=== PATIENT | female | born 1975 | race Caucasian/White ===

== ENCOUNTER 2023-03-31 08:24 | Day surgery (SDC) | payer OTHER, SELFPAY ==
[2023-03-31] VITALS (13 sets, daily range): BP systolic 96–120; BP diastolic 50–75; PULSE 63–77; RESP 16–24; TEMP 36–36.8; O2SAT 94–98; BMI 34.5
[2023-03-31] MEDS: Celecoxib 200 MG CAP PO (08:44)
[2023-03-31] MEDS: Gabapentin 300 MG CAP 600 MG PO (08:44)
[2023-03-31] MEDS: Acetaminophen 500 MG TAB 1000 MG PO (08:44)
--- NOTE | 2023-03-31 08:48 | ANES.PREOP_ITS ---
General Info Date of Service Date Performed: 03/31/23 Height: 5 ft 2 in Weight: 85.7 kg Body Mass Index (BMI): 34.5 Surgical Procedure: Operation Date: 03/31/23 09:25 Proposed Procedure Side Surgeon p Cholecystectomy Laparoscopic Delmi Patel MD Operation Date: 03/31/23 12:40 Proposed Procedure Side Surgeon p Cholecystectomy Laparoscopic Delmi Patel MD Meds Allergies and Home Medications Allergies Allergy/AdvReac Type Severity Reaction Status Date / Time Sulfa (Sulfonamide Allergy Unknown Verified 03/31/23 08:41 Antibiotics) Home Medication Medication Instructions Recorded albuterol sulfate 90 mcg/actuation 2 puff inhalation Q6H PRN 03/19/23 aerosol inhaler (Proventil HFA) escitalopram oxalate 10 mg tablet 10 mg PO DAILY 03/19/23 (Lexapro) pantoprazole 20 mg tablet,delayed 20 mg PO BID 03/19/23 release spironolactone 50 mg tablet 150 mg PO DAILY 03/22/23 Current Visit Medications: Current Medications Generic Name Dose Route Start Last Admin Trade Name Freq PRN Reason Stop Dose Admin Acetaminophen 1,000 mg 03/31/23 06:00 03/31/23 08:44 Acetaminophen 500 Mg Tab PO 04/29/23 23:59 1,000 mg PREOP NADIA Administration Celecoxib 200 mg 03/31/23 06:00 03/31/23 08:44 Celecoxib 200 Mg Cap PO 04/29/23 23:59 200 mg PREOP NADIA Administration Gabapentin 600 mg 03/31/23 06:00 03/31/23 08:44 Gabapentin 300 Mg Cap PO 04/29/23 23:59 600 mg PREOP NADIA Administration Ringer's Solution 1,000 mls @ 80 mls/hr 03/31/23 06:00 IV 04/29/23 23:59 INFUSION NADIA Cefazolin Sodium/Dextrose 2 gm in 50 mls @ 100 mls/hr 03/31/23 06:00 Ancef Duplex IVPB 04/29/23 23:59 PREOP NADIA IV Miscellaneous Supplies 1 each 03/31/23 06:00 Iv Access IV 04/29/23 23:59 DIRECTED NADIA Sodium Chloride 0 ml 03/31/23 06:00 Normal Saline Flush 10 Ml Syr IV 04/29/23 23:59 PRN PRN Sodium Chloride 0 ml 03/31/23 06:00 Normal Saline 10 Ml Vial IJ 04/29/23 23:59 DIRECTED PRN Sterile Water 0 ml 03/31/23 06:00 Water,Injection,Sterile 10 Ml Vial IJ 04/29/23 23:59 DIRECTED PRN PFSH Active Problems Active Problems: Problem Status Onset Code Biliary colic K80.50 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 Gall bladder polyp K82.4 Postprandial epigastric pain R10.13 Medical History Medical History Anxiety Asthma Depression Papilloma of palate Shoulder pain, right Surgical History Surgical History S/P rotator cuff surgery Tobacco Smoking/Tobacco Use Status: Never Alcohol Alcohol Intake: current Alcohol intake frequency: holidays/special occasions only Substance Use Substance use: Never Substance use type: does not use Vital Signs and Lab Results Vital Signs Most Recent Vital Signs in EMR: Most Recent Vital Signs Temp Pulse Resp BP Pulse Ox 36.8 C 69 18 107/71 98 03/31/23 08:35 03/31/23 08:35 03/31/23 08:35 03/31/23 08:35 03/31/23 08:35 Point of Care Results Point of Care Results: POC- Test(urine) Negative 03/31/23 08:42 Lab Results Blood Type / Crossmatch: No Data to Display Complete Blood Count: No Data to Display Complete Metabolic Panel: No Data to Display Liver Function Panel: No Data to Display Coagulation Panel: No Data to Display Cardiac Panel: No Data to Display Arterial Blood Gas: No Data to Display Venous Blood Gas: No Data to Display Pancreas Panel: No Data to Display Thyroid Panel: No Data to Display Infectious Disease: No Data to Display Blood Cultures: No Data to Display Toxicology Panel: No Data to Display Panel: No Data to Display Anesthesia Assessment and Plan Anesthesia History Personal History: No History of Anesthesia Complications Family History: No Family History of Anesthesia Complications Exercise Tolerance Exercise Tolerance: Metabolic Equivalents>4 Pertinent Negatives Pertinent Negatives: No Symptoms of GERD, No Major Cardiovascular Symptoms or Co mplaints and No History of CVA/TIA Cardiac & Pulmonary Exam Cardiac Exam: Normal S1/S2 Heart Sounds Pulmonary Exam: Clear Bilateral Breath Sounds Implantable Cardiac Device Does patient have a Pacemaker or an ICD?: No Airway Exam Known Difficult Airway: No Mallampati Class: 2 Mouth Opening: Normal (> 3cm) Thyromental Distance: Greater than 3 cm Neck Range of Motion: Full ROM Neck Circumference: Normal Teeth Condition: Normal Dentition ASA Classification ASA Score: ASA 2 Emergency Case?: No NPO Status NPO Status: NPO Clears >2 hours, Solids >8 hours Status Status: Negative HCG Anesthesia Plan Resuscitation Status: Full Code Anesthesia Technique: General Anesthesia Airway Planned: Endotracheal Tube Monitors Used: Standard Monitors
--- NOTE | 2023-03-31 08:50 | PGE_ITS ---
Date of Service Date of service: 03/31/23 Time of Service: 09:08 Assessment and Plan Assessment and plan (1) Adenomyomatosis of gallbladder: Status: Acute Assessment and plan: Carrie is a pleasant 47-year-old female who has been having postprandial pain which has been intermittent for the last year.? The episodes have become stronger.? The last 1 she ended up in the emergency department with.? She did have some PVCs on EKG when she was seen in the ER.? But she denies any palpitations or chest pain.? She has been treated with multiple antacids without improvement in her symptoms.? Ultrasound showed polyps 1 of which was in the neck as well as adenomyomatosis of the gallbladder.? Sometimes polyps can cause pain and this is an indication to have the gallbladder removed.? I described the pathophysiology of her disease as well as the procedure itself.? We reviewed all the risks, benefits and complications of the procedure in detail.? She seemed to have a good understanding of the complication potential at the end of our conversation.? Risks, benefits, complications were reviewed with the patient in the office.? Complications include but are not limited to bleeding, infection, injury to stomach, small bowel and large bowel, injury to the pancreas, injury to the common bile duct necessitating drainage and referral to tertiary center for repair, bile leak, adverse reactions to the medications, complications of intubation including a sore throat or injury to the uvula, [place], stroke and even .? Questions were entertained and answered to her satisfaction and she wished to proceed.? No guarantees were given or implied. I reviewed the risks, benefits and complications of the procedure again in same- day surgery the day of surgery. We reviewed the procedure and I answered any of her questions. She had a good understanding of the procedure and the possible complications and wished to proceed with surgery today. Proceed with laparoscopic cholecystectomy possible cholangiogram and possible open procedure. (2) Biliary colic: Status: Acute Subjective Subjective Interval history since last seen: From Chart: Carrie is a pleasant 47-year-old female who has been having postprandial pain which has been intermittent for the last year.? The episodes have become stronger.? The last 1 she ended up in the emergency department with.? She did have some PVCs on EKG when she was seen in the ER.? But she denies any palpitations or chest pain.? She has been treated with multiple antacids without improvement in her symptoms.? Ultrasound showed polyps 1 of which was in the neck as well as adenomyomatosis of the gallbladder.? Sometimes polyps can cause pain and this is an indication to have the gallbladder removed.? I described the pathophysiology of her disease as well as the procedure itself.? We reviewed all the risks, benefits and complications of the procedure in detail.? She seemed to have a good understanding of the complication potential at the end of our conversation.? Risks, benefits, c omplications were reviewed with the patient in the office.? Complications include but are not limited to bleeding, infection, injury to stomach, small bowel and large bowel, injury to the pancreas, injury to the common bile duct necessitating drainage and referral to tertiary center for repair, bile leak, adverse reactions to the medications, complications of intubation including a sore throat or injury to the uvula, MD, stroke and even .? Questions were entertained and answered to her satisfaction and she wished to proceed.? No guarantees were given or implied. Radha was seen in same-day surgery prior to her surgery today. She is doing well. She has not had any new symptoms or issues. She has not been in the emergency department since I saw her in the office. Exam Const General: cooperative, comfortable and no acute distress Nutritional Appearance: average body habitus Orientation: alert and oriented x3 HENMT Head: normocephalic and atraumatic Resp Effort & Inspection: normal respiratory effort Auscultation: clear to auscultation bilaterally Cardio Rate: regular rate Rhythm: regular rhythm GI Inspection: normal to inspection Palpation: soft, no hepatosplenomegaly and nontender Objective Last Vital Signs Temp 98.2 F 03/31/23 08:35 Pulse 69 03/31/23 08:35 Resp 18 03/31/23 08:35 BP 107/71 03/31/23 08:35 Pulse Ox 98 03/31/23 08:35 Time Spent with Patient Time Spent with Patient: <25 minutes Time was spent: counseling the patient
[2023-03-31] MEDS: Lactated Ringers 1,000 ML 80 ML IV (08:52)
--- NOTE | 2023-03-31 08:53 | W.PM.DSUDISC ---
Date of service: 03/31/23 Time of Service: 13:04 Discharge Plan Disposition Patient Disposition: Home Condition: Stable Discharge Details Reason For Visit: Biliary cholic Attending Provider: Delmi Patel Primary Care Provider: Latonya Herring Home Meds and New Rx's Prescriptions: New tramadol 50 mg tablet 50 mg PO Q6H PRNQty: 14 0RF Continued pantoprazole 20 mg Tablet,Delayed Release (Dr/Ec) 20 mg PO BID Rx Instructions: 1 tablet by mouth 2 times daily before meals albuterol sulfate [Proventil HFA] 90 mcg/actuation Hfa Aerosol Inhaler 2 puff INHALATION Q6H PRN escitalopram oxalate [Lexapro] 10 mg Tablet 10 mg PO DAILY Rx Instructions: 1.5 tablets by mouth daily spironolactone 50 mg tablet 150 mg PO DAILY Rx Instructions: take three tablets by mouth every day Discharge Instructions Instructions: Laparoscopic Cholecystectomy (DC) Additional Instructions: Activity at Home after surgery: 1. Make sure you walk outside at least 4 times per day 2. You should be able to climb a flight of stairs 3. No driving while in pain or taking pain medications 4. No strenuous activity or heavy lifting for 2 weeks (laparoscopic surgery) Diet, Nutrition, & wound healin. Avoid alcohol until after you are recovered from your surgery 2. Make sure to eat plenty of lean protein (meat, fish, eggs, cottage cheese, beans) 3. Eat a variety of fruits and vegetables. Eat plenty of high fiber foods to avoid constipation. 4. Drink plenty of liquids to stay hydrated and avoid constipation Pain Medications: 1. Tylenol 650mg every 6 hours as needed and Ibuprofen 600 mg every 6 hours as needed. You may alternate between the 2 medications every 3 hours 2. If a narcotic has been prescribed take as directed only for breakthrough pain For Constipation: 1. Take Milk of Magnesia or MiraLax as needed for constipation Other: 1. You may shower daily. Do not scrub the incisions 2. Do not soak the incisions for 1 week 3. You may alternate ice and heat as needed for pain and swelling Wound Care: 1. Keep the incisions clean and dry Please call our office if you develop: 1. Fevers >101.5 2. Nausea or Vomiting 3. Worsening pain 4. Redness and thick discharge from the wounds If after hours please call the Hospital at and ask to speak to the on-call surgeon Dr. Mustafa Cell phone: [phone] ( if I do not answer I may not have service, please call the hospital) Referrals: Delmi Patel MD [ [facility] STAFF PHYSICIAN] - 04/13/23 9:30 am Activity:: see above Remove Dressings/Wound Care:: Do Not Remove Shower/Bathe:: 24 hours Diet:: low fat Discharge Orders Discharge Orders: Discharge Order (Routine); Ordered 03/31/23 Ordered By: Delmi Patel DS: Diagnosis Discharge Diagnosis (1) Adenomyomatosis of gallbladder: Status: Acute Asessment and Plan: The patient is doing well post-op from their Laparodscopic Cholecystectomy surgery.? They are having no nausea or vomiting. They are tolerating liquids and a snack. The pt is not having any chest pain or SOB.? Their pain is adequately controlled. They have been able to urinate.? She is still sleep but wakes up to her name. She wants to go home and sleep. ?HEENT:? no eye pain/drainage/redness/swelling. Mild sore throat ?Cardio- NSR, no chest pain, BP stable- see VS record ?Pulm: no sob or productive cough. No hemoptysis ?Incision- dressing is c/d/i w/ no excessive bleeding or drainage ?I discussed with the patient the findings at the time of surgery and the patient?s progress. ?We reviewed expectations at home; what the patient could expect for recovery time, and in the post-operative period.? We discussed the importance of walking to avoid blood clots and pneumonia.? We discussed and reviewed the patient's post-operative wound care and dressing needs.?? We reviewed their step-craig pain management plan, Rx called to the pharmacy of their choice.? We reviewed activity and limitations-see discharge instructions. We reviewed warning signs, and when to seek medical attention- see d/c instructions.?? Patient was given a postoperative follow-up appointment. Patient verbalized understanding of their postoperative instructions, how do to take care of themselves and their incision, and the pain management plan. Please see discharge instructions.? (2) Biliary colic: Status: Acute
--- NOTE | 2023-03-31 09:08 | ROE_ITS ---
Date of service: 03/31/23 Time of Service: 10:18 Operative Note Operative Note DATE OF PROCEDURE: 03/31/23 PRE-OP DIAGNOSIS: Biliary Cholic Adenomyomatosis Gallbladder polyp POST-OP DIAGNOSIS: same PROCEDURE: Laparoscopic Cholecystectomy SURGEON: Delmi Patel SENIOR UI DESIGNER: Josr Lew ANESTHESIA TYPE: Local By Surgeon and General LMA/ETT Refer to Anesthesia Record ESTIMATED BLOOD LOSS: 25 PATHOLOGY: other (Gallbladder and contents) COMPLICATIONS: None Patient was transported to: PACU Patient's condition: stable Indications: Carrie is a pleasant 47-year-old female who has been having postprandial pain which has been intermittent for the last year.? The episodes have become stronger.? The last 1 she ended up in the emergency department with.? She did have some PVCs on EKG when she was seen in the ER.? But she denies any palpitations or chest pain.? She has been treated with multiple antacids without improvement in her symptoms.? Ultrasound showed polyps 1 of which was in the neck as well as adenomyomatosis of the gallbladder.? Sometimes polyps can cause pain and this is an indication to have the gallbladder removed.? I described the pathophysiology of her disease as well as the procedure itself.? We reviewed all the risks, benefits and complications of the procedure in detail.? She seemed to have a good understanding of the complication potential at the end of our conversation.? Risks, benefits, complications were reviewed with the patient in the office.? Complications include but are not limited to bleeding, infection, injury to stomach, small bowel and large bowel, injury to the pancreas, injury to the common bile duct necessitating drainage and referral to tertiary center for repair, bile leak, adverse reactions to the medications, complications of intubation including a sore throat or injury to the uvula, [place], stroke and even .? Questions were entertained and answered to her satisfaction and she wished to proceed.? No guarantees were given or implied. Findings: Normal appearing Gallbladder Procedure Description: After informed consent was obtained the patient was brought to the operating room, placed in a supine position and monitors were applied. SCDs were applied to her lower extremities and she was placed under general anesthesia and intubated without difficulty. Her abdomen was then prepped and draped in a sterile fashion using ChloraPrep. At this point a timeout was done and the patient's name, date of , procedure type, allergies to medications, metal in her body, antibiotic and DVT prophylaxis, and fire risk was assessed. Next 0.25% Bupivocaine was injected just above the umbilicus into the dermis and subcutaneous tissue. A 5 mm incision was made with an 11 blade. The subcutaneous tissue was dissected with a hemostat down to the fascia. The skin next to the incision was grasped with penetrating towel clamps and while pulling up on the skin a 5 mm port was placed under direct visualization. The abdomen was insuflated and then 3 more ports were placed. A 12 mm port was placed in the subxiphoid area and two 5 mm ports were placed in the right upper quadrant. The liver was inspected and looked normal. The patient's bed was then turned to the left and her head was brought up. The gallbladder was grasped at the body and pushed towards the right shoulder, this allowed me to visualize the neck of the gallbladder. The neck was grasped and pulled towards the right flank and down allowing me to visualize the lymph node. Using a [place] dissector with cautery the lymph node was gently dissected away from the tissues and the fatty tissue was also dissected away. The cystic duct was identified it was normal in size. The duct was dissected 360 degrees using the [place] dissector in order for me to visualize its entrance into the gallbladder. Liver was noted behind it. There were no other structures right behind. Critical view was achieved. 3 clips were placed one proximal and 2 distal and the cystic duct was cut. The cy stic artery was then identified and dissected 360 degrees. It was located just medial to the cystic duct. It was visualized going into the gallbladder. Once dissected 3 more clips were placed one proximal and 2 distal and the artery was cut. There was a small branch coming off the Cystic duct and a clip was applied. Using the hook dissector the gallbladder was then dissected away from the liver bed and placed into an Endo Catch bag and pulled through the 12 mm port site. The 12 mm port was placed back into the abdomen under direct visualization. The liver bed was inspected no bleeding was noted. The abdomen was then irrigated with a liter of normal saline until the effluent was clear. Once all the fluid was suctioned out, 10 cc of the local was then injected above the liver. The 12 mm and the 2 right upper quadrant ports were removed under direct visualization and no bleeding was noted from the fascia. The abdomen was deflated completely and lastly the umbilical port was removed. The skin was cleaned and the incisions were closed with 4-0 Vicryl. The skin was dried and dermabond was applied over the closed incisions. Needle, instrument and sponge counts were correct at the end of the case. At this point the patient was woken up, extubated and taken back to recovery in stable condition. There were no immediate complications.
[2023-03-31] MEDS: ceFAZolin 2 GM/50 ML BAG IVPB (09:34)
[2023-03-31] MEDS: Bupivacaine 0.25% Pres-Free 30 ML VIAL (09:47)
--- NOTE | 2023-03-31 10:01 | GB_PTH ---
PATIENT: Shanique Meraz LOC: [facility] U#:[id number] AGE/SX: 47/F ROOM: RE03/31/[address]: Delmi Patel MD : 1975 BED: DIS: 03/31/2023 SPEC #: [id number] RECD: 03/31/23 12:56 STATUS: CHAS REQ #: [id number] MARY: 03/31/23 10:[address]: Delmi Patel DEPT: Surgical Specimen RECD BY: Neeta Darling ENTERED: 03/31/23 12:57 SP TYPE: GB OTHR DR: Latonya Herring Tissues: 1 - GALLBLADDER Procedures: GROSS AND MICRO LEVEL 3 Comments: [id number]
[2023-03-31] MEDS: Ondansetron 4 MG/2 ML VIAL IVP (11:24)
[2023-03-31] MEDS: Droperidol 5 MG/2 ML VIAL 0.625 MG IVP (11:35)
[2023-03-31] MEDS: fentaNYL 100 MCG/2 ML VIAL IVP (11:45)
--- NOTE | 2023-03-31 13:00 | W.ANESPOSTOP ---
Postoperative Evaluation Date, Time and Location Date Performed: 03/31/23 Time Performed: 13:09 Patient Location: Day Surgery Unit Vital Signs Most Recent Imported Vital Signs: Most Recent Vital Signs Temp Pulse Resp BP Pulse Ox 36.4 C L 66 17 109/69 96 03/31/23 12:48 03/31/23 12:48 03/31/23 12:48 03/31/23 12:48 03/31/23 12:48 Pain Score Most Recent Pain Score: Most Recent Pain Score Pain Level 2 03/31/23 12:48 Assessment Mental Status: Arousable with meaningful communication Airway and Respiratory Function: Patent airway with normal (patient baseline) respiratory exam Cardiovascular Function: Hemodynamically Stable Hydration Status: Adequately Hydrated Nausea & Vomiting: No Nausea or Vomiting Pain: Pain is tolerable per patient Peripheral Nerve Block: Patient did not receive a nerve block
== END 2023-03-31 13:56 | disposition home or self-care (01) ==
PROVIDERS: PCP Nurse Practitioner Family; Visit Provider Surgery
PROC: 0FT44ZZ Resection of Gallbladder, Percutaneous Endoscopic Approach (ICD-10-PCS; CPT 47562; principal; 2023-03-31 09:15)
DX: J45.909 Unspecified asthma, uncomplicated; F32.A Depression, unspecified; K81.1 Chronic cholecystitis
CPT/HCPCS: 47562; 81025; 88304; J0690; J1100; J1790; J2250; J2405; J3010

== ENCOUNTER 2023-04-14 11:09 | Day surgery (SDC) | payer OTHER, SELFPAY ==
--- NOTE | 2023-04-14 07:16 | PGE_ITS ---
Date of Service Date of service: 04/14/23 Time of Service: 13:52 Assessment and Plan Assessment and plan (1) Epigastric pain: Status: Acute Assessment and plan: From her cholecystectomy standpoint she is doing well.? Her incisions have healed.? She has had 1 episode of epigastric pain that went to her chest with some shortness of breath which most likely was her anxiety.? EKG done by the applications programmer analyst was negative.? Patient has not had another episode.? This episode was after eating greasy spicy sausage the night before.? I tried to reassure Shanique that most likely this is just her gastritis acting up because of what she ate.? She has quite an anxiety issue as well which we discussed.? Certainly I could try adding Carafate to see if that will help.? Shanique is wondering about an upper endoscopy to make sure she does not have an ulcer.? I think giving her anxiety and her symptoms this is not unreasonable. I discussed the upper endoscopy with her.? We reviewed the procedure itself, the pathophysiology of gastritis, reflux.? We reviewed the risks, benefits and complications.? After our conversation Shanique had a good understanding of the procedure and the possible complications and wished to proceed.? Risks, benefits and complications have been reviewed. Complications include but are not limited to bleeding, pain, perforation, sore throat, aspiration, and adverse reaction to the medications.? Questions were entertained and answered to their satisfaction and they wished to proceed. No guarantees were given or implied. Subjective Subjective Interval history since last seen: Shanique is doing well. I saw her in same-day surgery. She does not have any questions about the procedure and the possible complications. She has not had any emesis or nausea today she has not had any chest pain or shortness of breath. We did review the procedure and its complications. Exam Const General: comfortable and no acute distress Nutritional Appearance: average body habitus Orientation: alert and oriented x3 HENMT Head: normocephalic and atraumatic Resp Effort & Inspection: normal respiratory effort Time Spent with Patient Time Spent with Patient: <25 minutes Time was spent: counseling the patient
--- NOTE | 2023-04-14 07:16 | ENDO_ITS ---
Date of service: 04/14/23 Time of Service: 14:54 Endoscopy Report DATE OF PROCEDURE: 04/14/23 PRE-OP DIAGNOSIS: epigastric pain POST-OP DIAGNOSIS: other (bile reflux gastritis) PROCEDURE: EGD with biopsies SURGEON: Delmi Patel ANESTHESIA TYPE: General:No Airway ESTIMATED BLOOD LOSS: 3 PATHOLOGY: other (Bx of stomach and GE junction) COMPLICATIONS: None DISPOSITION: same day INDICATIONS: From her cholecystectomy standpoint she is doing well.? Her incisions have healed.? She has had 1 episode of epigastric pain that went to her chest with some shortness of breath which most likely was her anxiety.? EKG done by the [employer] was negative.? Patient has not had another episode.? This episode was after eating greasy spicy sausage the night before.? I tried to reassure Shanique that most likely this is just her gastritis acting up because of what she ate.? She has quite an anxiety issue as well which we discussed.? Certainly I could try adding Carafate to see if that will help.? Shanique is wondering about an upper endoscopy to make sure she does not have an ulcer.? I think giving her anxiety and her symptoms this is not unreasonable. I discussed the upper endoscopy with her.? We reviewed the procedure itself, the pathophysiology of gastritis, reflux.? We reviewed the risks, benefits and complications.? After our conversation Shanique had a good understanding of the procedure and the possible complications and wished to proceed.? Risks, benefits and complications have been reviewed. Complications include but are not limited to bleeding, pain, perforation, sore throat, aspiration, and adverse reaction to the medications.? Questions were entertained and answered to their satisfaction and they wished to proceed. No guarantees were given or implied. FINDINGS: bile reflux with mild gastritis PROCEDURE DESCRIPTION: After informed consent was obtained the patient was take to the procedure room and placed in a supine position. Monitors were applied and a time out was done. The patients name, date of , procedure type, allergies to medications and metal in their body was reviewed. A bite block was placed and the patient was sedated. Once sedated and comfortable the gastroscope was advanced through the oropharynx which was grossly normal into the esophagus. The proximal and mid- esophagus were normal. In the distal esophagus there was no inflammation noted. The scope was advanced into the stomach and through the pylorus into the 3rd portion of the duodenum. The duodenum was noted to be normal. The scope was retracted back into the stomach and biopsies were done to rule out H. pylori. There were no ulcers. The scope was retroflexed. The cardia and fundus were noted to be normal. There was no hiatal hernia noted. The scope was retracted back into the esophagus and biopsies were done of the GE junction to rule out Ortega's. The Z line was regular. The GE junction was at 38 cm. The scope was removed and the patient was woken up and taken back to [facility] in stable condition. Follow up: 2 weeks
--- NOTE | 2023-04-14 07:17 | W.PM.DSUDISC ---
Date of service: 04/14/23 Time of Service: 14:36 Discharge Plan Disposition Patient Disposition: Home Condition: Stable Discharge Details Reason For Visit: EGD Attending Provider: Delmi Patel Primary Care Provider: Latonya Herring Home Meds and New Rx's Prescriptions: New sucralfate [Carafate] 1 gram tablet 1 g PO QACHS 30 Days Qty: 120 0RF Rx Instructions: Take before meals and at bedtime Continued propranolol 10 mg tablet 10 mg PO ONCE PRN albuterol sulfate [Proventil HFA] 90 mcg/actuation Hfa Aerosol Inhaler 2 puff INHALATION Q6H PRN escitalopram oxalate [Lexapro] 10 mg Tablet 10 mg PO DAILY Rx Instructions: 1.5 tablets by mouth daily spironolactone 50 mg tablet 150 mg PO DAILY Patient Comments: 04/14 Pt reports not having had to use Rx Instructions: take three tablets by mouth every day Discontinued pantoprazole 20 mg Tablet,Delayed Release (Dr/Ec) 20 mg PO BID Rx Instructions: 1 tablet by mouth 2 times daily before meals Discharge Instructions Additional Instructions: Findings: mild inflammation in the stomach and esophagus secondary to bile refluxing from the small intestine into the stomach Follow up: 2 weeks Medications: Carafate 1 gm take before meals and at bed. If its too hard to swallow you can dissolve the tablet in 2-3 ounces of water and drink the slurry Please call if you develop: fevers >101.5 Nausea or Vomiting Abdominal pain that is not transient Rectal bleeding that is more then a tbsp A hard abdomen and inability to pass gas DAY SURGERY UNIT POST ENDOSCOPY INSTRUCTIONS Instructions for everyone who is given Anesthesia: For your safety, please do the following for the next 24 Hours: a. Do not drive or operate dangerous equipment b. Do not drink alcohol beverages or use any recreational drugs for the first 24 hours or while taking pain medications. The medications in your body may have a reaction that can be dangerous. c. Do not make any important decisions or sign any important papers 1. Generally there are no restrictions on your activity after a day or so has gone by, but you may feel a bit fatigued for a few days. 2. After you arrive home you may have a light meal and return to a normal diet as you can tolerate it without feeling sick to your stomach. 3. After surgery, you may feel pain or discomfort. This should be only transient, but if it persists please contact your doctor. 4. If there are any questions regarding the findings of your procedure, please feel free to contact your doctor. 6. If you are unable to contact your doctor with a problem, contact the hospital at [phone]. 7. Continue all your regular medications unless directed otherwise. I understand the above instructions and have no questions. Signature of Patient or Responsible Adult Escort Date/Time Name of Responsible Adult Escort Signature of Nurse Date/Time Activity:: Activity as Tolerated Diet:: As Tolerated Discharge Orders Discharge Orders: Discharge Order (Routine); Ordered 04/14/23 Ordered By: Delmi Patel DS: Diagnosis Discharge Diagnosis (1) Epigastric pain: Status: Acute Asessment and Plan: Patient is seen and examined after their endoscopy. Patient has minimal sore throat. They have been able to tolerate liquids. They do not have any Nausea or Vomiting. They are not having any chest pain or shortness of breath. They have been able to pass gas and are not having any abdominal pain or distention. they have not vomited any blood. The vital signs have been stable-see nursing notes. We discussed findings on their endoscopy We reviewed the importance of lifestyle modifications- see diet recommendations We reviewed any new medications that the patient may be prescribed- see medicine reconciliation. Patient will either be sent a letter with the biopsy results or follow up in the office- see discharge instructions Patient was given explicit instructions for emergency follow up post endoscopy- see discharge instructions Patient verbalized understanding and was discharged in stable and satisfactory condition. See nursing notes.
--- NOTE | 2023-04-14 11:38 | W.ANESPRE ---
General Info Date of Service Date Performed: 04/14/23 Height: 5 ft 2 in Weight: 85.7 kg Body Mass Index (BMI): 34.5 Surgical Procedure: Operation Date: 04/14/23 14:35 Proposed Procedure Side Surgeon p Gastroscopy Delmi Patel MD Meds Allergies and Home Medications Allergies Allergy/AdvReac Type Severity Reaction Status Date / Time Sulfa (Sulfonamide Allergy Unknown Verified 04/14/23 12:15 Antibiotics) Home Medication Medication Instructions Recorded albuterol sulfate 90 mcg/actuation 2 puff inhalation Q6H PRN 03/19/23 aerosol inhaler (Proventil HFA) escitalopram oxalate 10 mg tablet 10 mg PO DAILY 03/19/23 (Lexapro) pantoprazole 20 mg tablet,delayed 20 mg PO BID 03/19/23 release spironolactone 50 mg tablet 150 mg PO DAILY 03/22/23 propranolol 10 mg tablet 10 mg PO ONCE PRN 04/13/23 Current Visit Medications: Current Medications Generic Name Dose Route Start Last Admin Trade Name Freq PRN Reason Stop Dose Admin Ringer's Solution 1,000 mls @ 80 mls/hr 04/14/23 06:00 IV 04/14/23 23:59 [facility] IV Miscellaneous Supplies 1 each 04/14/23 06:00 Iv Access IV 04/14/23 23:59 DIRECTED NADIA Ondansetron HCl 4 mg 04/14/23 07:17 Ondansetron 4 Mg/2 Ml Vial IVP 05/14/23 07:16 Q4H PRN PRN Nausea / Vomiting Sodium Chloride 0 ml 04/14/23 06:00 Normal Saline Flush 10 Ml Syr IV 04/14/23 23:59 PRN PRN Sodium Chloride 0 ml 04/14/23 06:00 Normal Saline 10 Ml Vial IJ 04/14/23 23:59 DIRECTED PRN Sterile Water 0 ml 04/14/23 06:00 Water,Injection,Sterile 10 Ml Vial IJ 04/14/23 23:59 DIRECTED PRN PFSH Active Problems Active Problems: Problem Status Onset Code Epigastric pain R10.13 Biliary colic K80.50 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 Gall bladder polyp K82.4 Postprandial epigastric pain R10.13 Medical History Medical History Anxiety Asthma Depression Papilloma of palate Shoulder pain, right Surgical History Surgical History History of bunionectomy b/l History of cholecystectomy (~03/2023) History of tonsillectomy and adenoidectomy Hx of section Hx of tubal ligation S/P rotator cuff surgery Tobacco Smoking/Tobacco Use Status: Never Alcohol Alcohol Intake: current Alcohol intake frequency: holidays/special occasions only Substance Use Substance use: Never Substance use type: does not use Vital Signs and Lab Results Vital Signs Most Recent Vital Signs in EMR: Temp Pulse Resp BP Pulse Ox 36.5 C 67 18 113/59 L 98 04/14/23 12:17 04/14/23 12:17 04/14/23 12:17 04/14/23 12:17 04/14/23 12:17 Lab Results Blood Type / Crossmatch: No Data to Display Complete Blood Count: No Data to Display Complete Metabolic Panel: No Data to Display Liver Function Panel: No Data to Display Coagulation Panel: No Data to Display Cardiac Panel: No Data to Display Arterial Blood Gas: No Data to Display Venous Blood Gas: No Data to Display Pancreas Panel: No Data to Display Thyroid Panel: No Data to Display Infectious Disease: No Data to Display Blood Cultures: No Data to Display Toxicology Panel: No Data to Display Panel: No Data to Display Anesthesia Assessment and Plan Anesthesia History Personal History: No History of Anesthesia Complications Family History: No Family History of Anesthesia Complications Exercise Tolerance Exercise Tolerance: Metabolic Equivalents>4 Cardiac & Pulmonary Exam Cardiac Exam: Normal S1/S2 Heart Sounds Pulmonary Exam: Clear Bilateral Breath Sounds Implantable Cardiac Device Does patient have a Pacemaker or an ICD?: No Airway Exam Known Difficult Airway: No Mallampati Class: 2 Mouth Opening: Normal (> 3cm) Thyromental Distance: Greater than 3 cm Neck Range of Motion: Full ROM Neck Circumference: Normal Teeth Condition: Normal Dentition ASA Classification ASA Score: ASA 2 Emergency Case?: No NPO Status NPO Status: NPO Clears >2 hours, Solids >8 hours Status Status: Negative HCG Anesthesia Plan Resuscitation Status: Full Code Anesthesia Technique: MAC Anesthesia Airway Planned: Natural Airway Monitors Used: Standard Monitors Preoperative Comments:: 47 yo female for EGD. no health history change Sig PMHx: asthma (rare albut use), depression, never smoker, occ EtOH. Previous Anes: - [employer] 2 grade 2b
[2023-04-14] MEDS: Lactated Ringers 1,000 ML 80 ML IV (12:10)
[2023-04-14 12:17] VITALS: BP 113/59; PULSE 67; RESP 18; TEMP 36.5; O2SAT 98
[2023-04-14 12:58] VITALS: BMI 34.5
--- NOTE | 2023-04-14 14:08 | STOM_PTH ---
PATIENT: Shanique Meraz LOC: [facility] U#:[id number] AGE/SX: 47/F ROOM: RE04/14/[address]: Delmi Patel MD : 1975 BED: DIS: 04/14/2023 SPEC #: [id number] RECD: 04/14/23 18:23 STATUS: CHAS REQ #: [id number] MARY: 04/14/23 14:[address]: Delmi Patel DEPT: Surgical Specimen RECD BY: Neeta Darling ENTERED: 04/14/23 18:24 SP TYPE: STOMACH OTHR DR: Latonya Herring Tissues: 1 - STOMACH BIOPSY 2 - ESOPHAGUS BIOPSY Procedures: GROSS AND MICRO LEVEL 4 Comments: [id number]
[2023-04-14 14:16] VITALS: BP 88/54; PULSE 81; RESP 16; TEMP 36.3; O2SAT 98
--- NOTE | 2023-04-14 14:24 | W.ANESPOSTOP ---
Postoperative Evaluation Date, Time and Location Date Performed: 04/14/23 Time Performed: 14:24 Patient Location: Day Surgery Unit Vital Signs Most Recent Imported Vital Signs: Most Recent Vital Signs Temp Pulse Resp BP Pulse Ox 36.3 C L 81 16 88/54 L 98 04/14/23 14:16 04/14/23 14:16 04/14/23 14:16 04/14/23 14:16 04/14/23 14:16 Pain Score Most Recent Pain Score: Most Recent Pain Score Pain Level 0 04/14/23 14:16 Assessment Mental Status: Awake (Alert & Oriented to Patient Baseline) Airway and Respiratory Function: Patent airway with normal (patient baseline) respiratory exam Cardiovascular Function: Hemodynamically Stable Hydration Status: Adequately Hydrated Nausea & Vomiting: No Nausea or Vomiting Pain: Pt. Denies Any Pain Peripheral Nerve Block: Patient did not receive a nerve block
[2023-04-14 14:56] VITALS: BP 97/51; PULSE 81; RESP 16; TEMP 36.3; O2SAT 99
[2023-04-14 15:20] VITALS: BP 100/60; PULSE 77; RESP 18; TEMP 36.5; O2SAT 99
== END 2023-04-14 15:35 | disposition home or self-care (01) ==
PROVIDERS: PCP Nurse Practitioner Family; Visit Provider Surgery
PROC: 0DJ68ZZ Inspection of Stomach, Via Natural or Artificial Opening Endoscopic (ICD-10-PCS; CPT 43235; principal; 2023-04-14 14:30)
DX: R10.13 Epigastric pain (principal); K29.60 Other gastritis without bleeding
CPT/HCPCS: 43239; 88305; J2704